=== PATIENT | female | born 1965 | race Caucasian/White ===

== ENCOUNTER 2018-05-01 10:42 | Observation (INO) | payer OTHER ==
--- OUTSIDE RECORDS SUMMARY | 2018-05-01 10:45 | XMS REPORT | Clinical Summary ---
:1965 Author Organization [facility] Address [address] [place] [address] Care Team Providers Name Role Phone Denis Ivan MD Primary Care Provider Allergies Active Allergy Reactions Severity Noted Date Comments Codeine 08/26/2015 Medications Medication Sig Dispensed Refills Start End Status Date Date HYDROcodone-acetaminoph Take 1 tablet 0 10/09/19 Active en (NORCO 10-325) by mouth 2 16 10-325 mg per tablet (two) times a day. diclofenac (VOLTAREN) 1 APPLY TO 0 10/08/19 Active % gel AFFECTED 17 AREA(S) 4 TIMES A DAY FOR 25 DAYS gabapentin (NEURONTIN) 1 capsule 90 capsule 3 11/06/19 Active 300 mg nightly prn. 17 capsuleIndications: Generalized OA estradiol (ESTRACE) 1 Take 1 tablet 0 Active MG tablet every day by oral route. medroxyPROGESTERone Take 5 mg by 6 07/12/19 Active (PROVERA) 5 MG tablet mouth daily. 18 lidocaine (LIDODERM) 5 Place 1 patch 0 Active % on the skin as needed for mild pain. Remove & Discard patch within 12 hours or as directed by levothyroxine Take 137 mcg by 0 Active (SYNTHROID, LEVOXYL) mouth every 137 mcg tablet morning. meloxicam (MOBIC) 15 mg Take 1 tablet 90 tablet 3 01/05/20 Active tabletIndications: (15 mg total) 18 Generalized OA by mouth once daily. CHERATUSSIN AC 10-100 TAKE 10 0 10/29/20 Discontinued mg/5 mL liquid MILLILITERS BY 16 018 MOUTH EVERY 12 HOURS NEEDED FOR COUGH levothyroxine Take 150 mcg by 0 Discontinued (SYNTHROID, LEVOTHROID) mouth every 018 150 MCG tablet morning. desvenlafaxine Take 50 mg by 0 Discontinued (PRISTIQ) 50 MG 24 hr mouth daily. 018 tablet meloxicam (MOBIC) 15 mg Take 1 tablet 90 tablet 3 11/06/19 Discontinued tabletIndications: (15 mg total) 17 018 Generalized OA by mouth once daily. Active Problems Problem Noted Date Osteoarthritis cervical spine 11/05/2015 Spondylosis of lumbar region without myelopathy or radiculopathy 11/05/2015 Last Assessment & Plan: I believe that the majority of Mrs. Del Cid's achiness comes from degenerative disease. She certainly has it present in both the cervical and lumbar spine regions as well as bilaterally in the hands and wrist. The meloxicam is helping and I think we should simply continue it, being certain that there is no evidence that the medication is causing organ damage or toxicity. Raised antibody titer 11/05/2015 Last Assessment & Plan: Although she has had a fairly consistent albeit low positive rheumatoid factor I do not see any evidence of active disease. There is no synovial thickening, precious articular swelling or marked reduction in range of motion (at least that we couldn't better attribute to her widespread degenerative arthritis). Rotator cuff impingement syndrome of right shoulder 11/05/2015 Encounter for long-term (current) use of non-steroidal anti-inflammatories 08/2015 Acquired hypothyroidism 11/05/2015 Last Assessment & Plan: We will continue to check these levels periodically to be certain that her supplements are sufficient. Vitamin D deficiency 11/05/2015 Last Assessment & Plan: We will continue to check these levels periodically to be certain that her [id number] supplements are sufficient. Encounters Date Type Specialty Care Team Description 01/04/2018 Orders Only Rheumatology Katty Martinez MA Generalized OA 07/26/2017 Telephone Rheumatology Katty Martinez MA 07/20/2017 Hospital Encounter Radiology Ok Rand Generalized OA MD 07/20/2017 Hospital Encounter Radiology Ok Rand Generalized OA MD 07/20/2017 Hospital Encounter Radiology Ok Rand Generalized OA MD 07/20/2017 Office Visit Rheumatology Ok Rand Generalized OA ( Primary Dx); MD Encounter for long-term (current) use of non-steroidal anti- inflammatories; BMI 35.0-35.9,adult 05/19/2017 Telephone Rheumatology Katty Martinez MA 05/18/2017 Orders Only Rheumatology Katty Martinez MA Vitamin D deficiency (Primary Dx); Spondylosis of lumbar region without myelopathy or radiculopathy; Raised antibody titer; Acquired hypothyroidism; Encounter for long-term (current) use of non-steroidal anti- inflammatories after 04/30/2017 Family History Medical History Relation Name Comments No Known Problems Brother Alcohol abuse Father No Known Problems Mother Alcohol abuse Sister No Known Problems Sister HALF SISTER; SAME DAD Relation Name Status Comments Brother Alive Father Alive Mother Alive Sister Alive Sister Alive Social History Tobacco Use Types Packs/Day Years Used Date Never Smoker Smokeless Tobacco: Never Used Alcohol Use Drinks/Week oz/Week Comments No Sex Assigned at Date Recorded Not on file Job Start Date Occupation Industry Not on file Not on file Not on file Travel History Travel Start Travel End No recent travel history available. Last Filed Vital Signs Vital Sign Reading Time Taken Blood Pressure 124/71 07/20/2017 8:35 AM CDT Pulse 63 07/20/2017 8:35 AM CDT Temperature 36.7 C (98 F) 07/20/2017 8:35 AM CDT Respiratory Rate 14 07/20/2017 8:35 AM CDT Oxygen Saturation 100% 07/20/2017 8:35 AM CDT Inhaled Oxygen Concentration - - Weight 98.9 kg (218 lb) 07/20/2017 8:35 AM CDT Height 167.6 cm (5' 6") 07/20/2017 8:35 AM CDT Body Mass Index 35.19 07/20/2017 8:35 AM CDT Plan of Treatment Date Type Specialty Care Team Description 07/21/2018 Office Visit Rheumatology Ok Rand MD [address] [facility] [address] [place] [id number] Health Maintenance Due Date Last Done Comments CERVICAL CANCER SCREENING 06/25/1984 BREAST CANCER SCREENING 06/25/2013 COLON CANCER SCREENING 06/25/2013 SHINGLES VACCINES (#1) 06/25/2013 INFLUENZA VACCINE 09/28/2017 Procedures Procedure Name Priority Date/Time Associated Diagnosis Comments XR WRIST 3VW Routine 07/20/2017 11:20 Generalized OA Results for this BILATERAL AM CDT procedure are in the results section. XR HANDS 3 VW Routine 07/20/2017 11:20 Generalized OA Results for this BILATERAL AM CDT procedure are in the results section. XR HIPS BILATERAL AP Routine 07/20/2017 11:08 Generalized OA Results for this LATERAL W AP PELVIS AM CDT procedure are in the results section. VITAMIN D 25 HYDROXY Routine 05/18/2017 3:38 Vitamin D deficiency Results for this LEVEL PM CDT procedure are in the results section. T4, FREE Routine 05/18/2017 3:38 Acquired Results for this PM CDT hypothyroidism procedure are in the results section. THYROID STIMULATING Routine 05/18/2017 3:38 Acquired Results for this HORMONE PM CDT hypothyroidism procedure are in the results section. URINALYSIS, AUTOMATED Routine 05/18/2017 3:38 Encounter for Results for this WITH MICROSCOPY PM CDT long-term (current) procedure are in use of non-steroidal the results anti-inflammatories section. C-REACTIVE PROTEIN Routine 05/18/2017 3:38 Spondylosis of lumbar Results for this PM CDT region without procedure are in myelopathy or the results radiculopathy section. Raised antibody titer SEDIMENTATION RATE Routine 05/18/2017 3:38 Spondylosis of lumbar Results for this PM CDT region without procedure are in myelopathy or the results radiculopathy section. Raised antibody titer COMPREHENSIVE Routine 05/18/2017 3:38 Encounter for Results for this METABOLIC PANEL PM CDT long-term (current) procedure are in use of non-steroidal the results anti-inflammatories section. CBC WITH PLATELET AND Routine 05/18/2017 3:38 Encounter for Results for this DIFFERENTIAL PM CDT long-term (current) procedure are in use of non-steroidal the results anti-inflammatories section. after 04/30/2017 Results XR Wrist 3Vw Bilateral (07/20/2017 11:20 AM CDT) Narrative Performed At EXAMINATION:XR WRIST 3VW BILATERAL HM [facility] CLINICAL HISTORY:M15.9 Polyosteoarthritisunspecified, RA COMPARISON:None available at this time. IMPRESSION: 1. No fracture, malalignment, or osseous destructive lesion in either wrist. 2. Joint spaces are maintained bilaterally. No significant degenerative changes. 3. Soft tissues are unremarkable. [facility]-[id number] Procedure Note Hm Interface, Radiology Results Incoming - 07/20/2017 12:06 PM CDT EXAMINATION: XR WRIST 3VW BILATERAL CLINICAL HISTORY: M15.9 Polyosteoarthritis unspecified, RA COMPARISON: None available at this time. IMPRESSION: 1. No fracture, malalignment, or osseous destructive lesion in either wrist. 2. Joint spaces are maintained bilaterally. No significant degenerative changes. 3. Soft tissues are unremarkable. [facility]-[id number] Performing Organization Address [facility] Phone Number [facility] [address] [place] [address] XR Hands 3 Vw Bilateral (07/20/2017 11:20 AM CDT) Narrative Performed At EXAMINATION:XR HANDS 3 VW BILATERAL [facility] CLINICAL HISTORY:M15.9 Polyosteoarthritisunspecified, RA COMPARISON:None available at this time. IMPRESSION: 1. No fracture, malalignment, or osseous destructive lesion in either hand. 2. Joint spaces are maintained bilaterally. No significant degenerative changes. 3. Soft tissues are unremarkable. [facility]-[id number] Procedure Note Interface, Radiology Results 07/20/2017 12:05 PM CDT EXAMINATION: XR HANDS 3 VW BILATERAL CLINICAL HISTORY: M15.9 Polyosteoarthritis unspecified, RA COMPARISON: None available at this time. IMPRESSION: 1. No fracture, malalignment, or osseous destructive lesion in either hand. 2. Joint spaces are maintained bilaterally. No significant degenerative changes. 3. Soft tissues are unremarkable. [facility]-[id number] Performing Organization Address [facility] Phone Number [facility] [address] [place] [address] XR Hips Bilateral Ap Lateral W Ap Pelvis (07/20/2017 11:08 AM CDT) Narrative Performed At EXAMINATION:XR HIPS BILATERAL AP LATERAL W AP PELVIS [facility] CLINICAL HISTORY:M15.9 Polyosteoarthritisunspecified, RA COMPARISON:None available at this time. IMPRESSION: There is no evidence of fracture or dislocation in either hip. Minimal joint space narrowing of the left hip with small subchondral cyst present. Minimal periarticular osteophyte formation. No suspicious focal blastic or lytic lesions are present [facility]-[id number] Procedure Note Interface, Radiology Results 07/20/2017 12:05 PM CDT EXAMINATION: XR HIPS BILATERAL AP LATERAL W AP PELVIS CLINICAL HISTORY: M15.9 Polyosteoarthritis unspecified, RA COMPARISON: None available at this time. IMPRESSION: There is no evidence of fracture or dislocation in either hip. Minimal joint space narrowing of the left hip with small subchondral cyst present. Minimal periarticular osteophyte formation. No suspicious focal blastic or lytic lesions are present [id number] Performing Organization Address City/[facility]/Zipcode Phone Number JOLENE [address] [place] [address] Vitamin D 25 hydroxy level (05/18/2017 3:38 PM CDT) Vitamin D, 25-hydroxy 39 30 - 100 ng/mL [facility] Comment: [facility] Vitamin D Status 25-OH Vitamin D: Deficiency:<20 ng/mL Insufficiency: 20 - 29 ng/mL Optimal: > or=30 ng/mL For 25-OH Vitamin D testing on patients on D2-supplementation and patients for whom quantitation of D2 and D3 fractions is required, the QuestAssureD(TM) 25-OH VIT D, (D2,D3), LC/MS/MS is recommended: order code 72764 (patients >2yrs). For more information on this test, go to: http://education.[employer]/faq/QOG609 (This link is being provided for informational/educational purposes only.) Specimen Blood Narrative Performed At FASTING:NO [facility] FASTING: NO Resulting Agency Comment Performing Organization Information: Site ID: [id number] Name: [facility] Address: [address] [place] [phone] Director: Daniella Rhoades MD Performing Organization Address [facility] Phone Number [facility] [address] [place], [place] [id number] Urinalysis, automated with microscopy (05/18/2017 3:38 PM CDT) Color, UA YELLOW YELLOW [facility] Appearance CLEAR CLEAR [facility] [place] Specific gravity, urine 1.029 1.001 - 1.035 [facility] pH, urine 7.0 5.0 - 8.0 [facility] [place] Glucose, urine NEGATIVE NEGATIVE [facility] Bilirubin, UA NEGATIVE NEGATIVE [facility] [place] Ketones, UA NEGATIVE NEGATIVE [facility] [place] Occult blood, urine NEGATIVE NEGATIVE [facility] [place] Protein, UA TRACE (A) NEGATIVE [facility] [place] Nitrite, UA NEGATIVE NEGATIVE [facility] [place] Leukocyte esterase, UA NEGATIVE NEGATIVE [facility] [place] WBC, UA NONE SEEN < OR=5 /HPF [facility] [place] RBC, UA NONE SEEN < OR=2 /HPF [facility] [place] Squamous epithelial cells, UA 10-20 (A) < OR=5 /HPF [facility] [place] Bacteria, UA NONE SEEN NONE SEEN /HPF [facility] [place] Hyaline casts, UA NONE SEEN NONE SEEN /LPF [facility] Specimen Urine Narrative Performed At FASTING:NO [facility] FASTING: NO Resulting Agency Comment Performing Organization Information: Site ID: A Name: [facility] Address: [address] [place], [place] [id number] Director: Daniella Rhoades MD Performing Organization Address [facility] Phone [place] [address] Sedimentation rate (05/18/2017 3:38 PM CDT) Sedimentation rate 17 < OR=30 mm/h [facility] Specimen Blood Narrative Performed At FASTING:NO [facility] FASTING: NO Resulting Agency Comment Performing Organization Information: Site ID: [id number] Name: [facility] Address: [address] [place] [address] Director: Daniella Rhoades MD Performing Organization Address [facility] Phone [place] [address] CBC with platelet and differential (05/18/2017 3:38 PM CDT) WBC 5.7 3.8 - 10.8 Thousand/uL [facility] RBC 4.21 3.80 - 5.10 Million/uL [facility] HGB 12.0 11.7 - 15.5 g/dL [facility] HCT 35.7 35.0 - 45.0 % [facility] MCV 84.8 80.0 - 100.0 fL [facility] MCH 28.5 27.0 - 33.0 pg [facility] MCHC 33.6 32.0 - 36.0 g/dL [facility] RDW 13.5 11.0 - 15.0 % [facility] Platelet count 219 140 - 400 Thousand/uL [facility] MPV 12.0 7.5 - 12.5 fL [facility] Neutrophils, absolute 3,688 1,500 - 7,800 cells/uL [facility] Lymphocytes, absolute 1,562 850 - 3,900 cells/uL [facility] Monocytes, absolute 331 200 - 950 cells/uL [facility] [place] Eosinophils, absolute 80 15 - 500 cells/uL [facility] [place] Basophils, absolute 40 0 - 200 cells/uL [facility] [place] Neutrophils 64.7 % [facility] [place] Lymphocytes 27.4 % [facility] Monocytes 5.8 % [facility] Eosinophils 1.4 % [facility] [place] Basophils + RC 0.7 % [facility] Specimen Blood Narrative Performed At FASTING:NO [facility] FASTING: NO Resulting Agency Comment Performing Organization Information: Site ID: [id number] Name: [facility] Address: [address] [place] [phone] Director: Daniella Rhoades MD Performing Organization Address [facility] [place] [address] C-reactive protein (05/18/2017 3:38 PM CDT) CRP 3.0 <8.0 mg/L [facility] Specimen Blood Narrative Performed At FASTING:NO [facility] FASTING: NO Resulting Agency Comment Performing Organization Information: Site ID: [facility] Name: [facility] Address: [address] [place] [phone] Director: Daniella Rhoades MD Performing Organization Address [facility] [place] [address] Thyroid stimulating hormone (05/18/2017 3:38 PM CDT) TSH 0.02 (L) mIU/L [facility] Comment: Reference Range > or=20 Years0.40-4.50 Ranges First trimester0.26-2.66 Second trimester 0.55-2.73 Third trimester0.43-2.91 Specimen Blood Narrative Performed At FASTING:NO [facility] FASTING: NO Resulting Agency Comment Performing Organization Information: Site ID: A Name: [facility] Address: [address] [place] [phone] Director: Daniella Rhoades MD Performing Organization Address [facility] Phone Number [facility] [address] [address] T4, free (05/18/2017 3:38 PM CDT) T4, free 1.8 0.8 - 1.8 ng/dL [facility] [place] Specimen Blood Narrative Performed At FASTING:NO [facility] FASTING: NO Resulting Agency Comment Performing Organization Information: Site ID: [id number] Name: [facility] Address: [address] [place] [phone] Director: Daniella Rhoades MD Performing Organization Address City/State/Zipcode Phone Number [facility] [address] [place] [phone] Comprehensive metabolic panel (05/18/2017 3:38 PM CDT) Glucose 92 65 - 99 mg/dL [facility] Comment: [place] Fasting reference interval BUN, whole blood 15 7 - 25 mg/dL [facility] Creatinine 0.77 0.50 - 1.05 [facility] Comment: mg/dL [facility] For patients >49 years of age, the reference limit for Creatinine is approximately 13% higher for people identified as -Citizen Of [place]. EGFR Non-Afr. Citizen Of [place] 88 > OR=60 [facility] mL/min/1.73m2 [place] EGFR 102 > OR=60 [facility] mL/min/1.73m2 [place] BUN/creatinine ratio NOT APPLICABLE 6 - 22 (calc) [facility] [place] Sodium 142 135 - 146 mmol/L [facility] [place] Potassium 4.3 3.5 - 5.3 mmol/L [facility] [place] Chloride 105 98 - 110 mmol/L [facility] [place] CO2 30 20 - 31 mmol/L [facility] [place] Calcium 9.5 8.6 - 10.4 mg/dL [facility] [place] Protein 7.0 6.1 - 8.1 g/dL [facility] [place] Albumin, S 4.3 3.6 - 5.1 g/dL [facility] [place] Globulin, total 2.7 1.9 - 3.7 g/dL [facility] (calc) [place] Albumin/globulin ratio 1.6 1.0 - 2.5 (calc) [facility] [place] Total bilirubin 0.2 0.2 - 1.2 mg/dL [facility] [place] Alkaline phosphatase 93 33 - 130 U/L [facility] [place] AST 14 10 - 35 U/L [facility] [place] ALT 26 6 - 29 U/L [facility] [place] Specimen Blood Narrative Performed At FASTING:NO [facility] FASTING: NO Resulting Agency Comment Performing Organization Information: Site ID: [id number] Name: [facility] Address: [address] [place] [address] Director: Daniella Rhoades MD Performing Organization Address City/State/Zipcode Phone Number JORDEN [facility] [place] [address] [place] [address] after 04/30/2017 Insurance Payer Benefit Plan / Group Subscriber ID Type Phone Address [employer]IG[employer] CIGNA HMO/POS xxxxxxxxxxx HMO ([place] [address] Advance Directives Patient has advance care planning documents on file. For more information, please contact:Grant Frey[address] [place] [address]
[2018-05-01 12:29] LABS: Absolute Lymphocytes (CBC) 1.4 K/uL (0.7-4.9); Absolute Monocytes 0.2 K/uL (0.1-1.3); Absolute Neutrophil 4.2 K/uL (1.8-8.0); Basophils % 0.7 % (0-1.3); Eosinophils % 0.4 % (0-4.4); Hematocrit 41.9 % (36.0-45.0); Lymphocytes % 23.4 % (15.3-44.8); MPV 9.6 fL (7.6-11.3); Monocytes % 3.7 % (3.3-12.3); RBC Red Blood Cell Count 4.55 M/uL (3.86-4.86)
--- NOTE | 2018-05-01 12:30 | RAD REPORT ---
EXAM DESCRIPTION: Stacey Single View05/01/2018 12:21 pm CLINICAL HISTORY: Chest pain COMPARISON: 2014 FINDINGS: The lungs appear clear of acute infiltrate. The heart is normal size IMPRESSION: No acute abnormalities displayed
[2018-05-01 12:46] LABS: Protime INR 1.08
[2018-05-01 12:49] LABS: ALT/SGPT 26 U/L (12-78); AST/SGOT 10 U/L (15-37); Albumin 4.1 g/dL (3.4-5.0); Alkaline Phosphatase 86 U/L (45-117); BUN Blood Urea Nitrogen 18 mg/dL (7-18); Bicarbonate 29 mmol/L (21-32); Bilirubin Direct 0.1 mg/dL (0-0.2); Bilirubin Total 0.3 mg/dL (0.2-1.0); Glucose Level 92 mg/dL (74-106); Magnesium 2.2 mg/dL (1.8-2.4); NT PRO-BNP 49 pg/mL (<125); Potassium 4.1 mmol/L (3.5-5.1); Protein, Total 7.8 g/dL (6.4-8.2); Sodium Level 140 mmol/L (136-145); Troponin (Emerg Dept Use Only) < 0.02 ng/mL (0.0-0.045)
--- NOTE | 2018-05-01 13:27 | EDPHYS ---
Physician Documentation [facility] Name: Blanca Del Cid Age: 52 yrs Sex: Female : 1965 Arrival Date: 05/01/2018 Time: 10:45 Bed 19 Private MD: ED Physician Quan Jarrell HPI: 05/01 16:45 This 52 yrs old Female presents to ER via Ambulatory with complaints of Arm gs Pain, Chest Pain, Nausea. 16:45 The patient or guardian reports chest pain that is located primarily in the anterior gs chest wall. Onset: 3 day(s) ago. The pain radiates to the left shoulder, left jaw. Associated signs and symptoms: Pertinent positives: nausea, shortness of breath. The chest pain is described as a heaviness. Duration: The patient or guardian reports multiple episodes, that are intermittent, that wax and wane, with no pattern, the episodes last approximately 20 minute(s). Modifying factors: The symptoms are alleviated by nothing. the symptoms are aggravated by nothing. Severity of pain: At its worst the pain was moderate in the emergency department the pain has improved markedly. The patient has experienced similar episodes in the past, a few times. The patient has not recently seen a physician. 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 sling; bunionectomy right; - Immunization history:: Flu vaccine is up to date. - Social history:: Smoking status: Patient/guardian denies using tobacco. - Ebola Screening: : No symptoms or risks identified at this time. ROS: 16:45 All other systems are negative. gs Exam: 16:45 Head/Face: Normocephalic, atraumatic. Eyes: Pupils equal round and reactive to light, gs extra-ocular motions intact. Lids and lashes normal. Conjunctiva and sclera are non-icteric and not injected. Cornea within normal limits. Periorbital areas with no swelling, redness, or edema. ENT: Nares patent. No nasal discharge, no septal abnormalities noted. Tympanic membranes are normal and external auditory canals are clear. Oropharynx with no redness, swelling, or masses, exudates, or evidence of obstruction, uvula midline. Mucous membranes moist. Neck: Trachea midline, no thyromegaly or masses palpated, and no cervical lymphadenopathy. Supple, full range of motion without nuchal rigidity, or vertebral point tenderness. No Meningismus. Chest/axilla: Normal chest wall appearance and motion. Nontender with no deformity. No lesions are appreciated. Cardiovascular: Regular rate and rhythm with a normal S1 and S2. No gallops, murmurs, or rubs. Normal PMI, no JVD. No pulse deficits. Respiratory: Lungs have equal breath sounds bilaterally, clear to auscultation and percussion. No rales, rhonchi or wheezes noted. No increased work of breathing, no retractions or nasal flaring. Abdomen/GI: Soft, non-tender, with normal bowel sounds. No distension or tympany. No guarding or rebound. No evidence of tenderness throughout. Back: No spinal tenderness. No costovertebral tenderness. Full range of motion. Skin: Warm, dry with normal turgor. Normal color with no rashes, no lesions, and no evidence of cellulitis. MS/ Extremity: Pulses equal, no cyanosis. Neurovascular intact. Full, normal range of motion. Neuro: Awake and alert, GCS 15, oriented to person, place, time, and situation. Cranial nerves II-XII grossly intact. Motor strength 5/5 in all extremities. Sensory grossly intact. Cerebellar exam normal. Normal gait. 16:45 Constitutional: The patient appears alert, awake. 16:45 ECG was reviewed by the Attending Physician. Vital Signs: 11:00 BP 166 / 78; Pulse 69; Resp 16 S; Temp 97.3(TE); Pulse Ox 100% on R/A; Weight 93.44 kg aa5 (R); Height 5 ft. 6 in. (167.64 cm) (R); Pain 9/10; 12:37 BP 137 / 82; Pulse 66; Resp 18; Pulse Ox 99% on R/A; Pain 6/10; ph 13:24 BP 137 / 90; Pulse 72; Resp 17; Pulse Ox 99% on R/A; dh3 14:06 BP 141 / 84; Pulse 66; Resp 18; Temp 97.4; Pulse Ox 100% on R/A; ph 11:00 Body Mass Index 33.25 (93.44 kg, 167.64 cm) aa5 MDM: 11:39 Patient medically screened. gs 16:45 Differential diagnosis: acute myocardial infarction, coronary artery disease chest wall gs pain, unstable angina. Data reviewed: vital signs, nurses notes. Counseling: I had a detailed discussion with the patient and/or guardian regarding: the historical points, exam findings, and any diagnostic results supporting the discharge/admit diagnosis, the need for further work-up and treatment in the hospital. Response to treatment: the patient's symptoms have resolved after treatment, the patient's pain is gone. 05/01 11:42 Order name: Basic Metabolic Panel; Complete Time: 13:20 05/01 11:42 Order name: CBC with Diff; Complete Time: 13: 05/01 11:42 Order name: LFT's; Complete Time: 13: 05/01 11:42 Order name: Magnesium; Complete Time: 13:20 05/01 11:42 Order name: NT PRO-BNP; Complete Time: 13:20 05/01 11:42 Order name: PT-INR; Complete Time: 13:20 05/01 11:42 Order name: Troponin (emerg Dept Use Only); Complete Time: 13:20 05/01 11:42 Order name: XRAY Chest (1 view); Complete Time: 13:20 05/01 11:42 Order name: EKG; Complete Time: 11:42 05/01 11:42 Order name: Cardiac monitoring; Complete Time: 14:08 05/01 11:42 Order name: EKG - Nurse/Tech; Complete Time: 14:08 05/01 11:42 Order name: IV Saline Lock; Complete Time: 14:20 05/01 11:42 Order name: Labs collected and sent; Complete Time: 14: 05/01 11:42 Order name: O2 Per Protocol; Complete Time: 14: 05/01 11:42 Order name: O2 Sat Monitoring; Complete Time: 14:21 EC:45 Rate is 65 beats/min. Rhythm is regular. MT interval is normal. Q waves are Old. T gs waves are Flattened. Clinical impression: NSR w/ Non-specific ST/T Changes. Interpreted by me. Administered Medications: No medications were administered Disposition: 05/01/18 13:27 Hospitalization ordered by Ross Campos for Observation. Preliminary diagnosis is Precordial pain. - Bed requested for Telemetry/MedSurg (observation). - Status is Observation. ph - Condition is Stable. - Problem is new. - Symptoms have improved. UTI on Admission? No Signatures: Dispatcher [employer] EDVioletta Willson RN RN dw Calderon, Audri, RN RN aa Era Figueroa RN RN ph JarrellQuan MD MD Corrections: (The following items were deleted from the chart) 13:59 13:27 Hospitalization Ordered by Ross Camops DO for Observation. Preliminary diagnosis is Precordial pain. Bed requested for Telemetry/MedSurg (observation). Status is Observation. Condition is Stable. Problem is new. Symptoms have improved. UTI on Admission? No. gs 14:58 13:59 05/01/2018 13:27 Hospitalization Ordered by Ross Campos DO for Observation. ph Preliminary diagnosis is Precordial pain. Bed requested for Telemetry/MedSurg (observation). Status is Observation. Condition is Stable. Problem is new. Symptoms have improved. UTI on Admission? No. dw
--- NOTE | 2018-05-01 13:27 | ER ---
Nurse's Notes [facility] Name: Blanca Del Cid Age: 52 yrs Sex: Female : 1965 Arrival Date: 05/01/2018 Time: 10:45 Bed 19 Private MD: Diagnosis: Precordial pain Presentation: 05/01 10:54 Presenting complaint: Patient states: left arm pain that began Tuesday. Pt reports chest aa5 pain that began Tuesday. Pt also reports palpitations, SOB, nausea, and left ear/left jaw pain. Transition of care: patient was not received from another setting of care. Onset of symptoms was April 2018. Risk Assessment: Do you want to hurt yourself or someone else? Patient reports no desire to harm self or others. Initial Sepsis Screen: Does the patient meet any 2 criteria? No. Patient's initial sepsis screen is negative. Does the patient have a suspected source of infection? No. Patient's initial sepsis screen is negative. Care prior to arrival: None. 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/A - Uterine ablation aa5 Historical: - Allergies: 10:56 Sulfa (Sulfonamide Antibiotics); aa5 10:56 Morphine; aa5 - Home Meds: 11:00 Synthroid 137 mcg Oral tab once daily [Active]; hydrocodone-acetaminophen 10-325 mg aa5 Oral tab [Active]; meloxicam oral oral [Active]; estradiol 1 mg Oral tab [Active]; medroxyprogesterone 5 mg Oral tab [Active]; Cymbalta 60 mg oral cpDR [Active]; - PMHx: 11:00 Depression; hypothyroidism; Prolapsed bladder; RA; Osteoarthritis; aa5 - PSHx: 10:56 Cholecystectomy; ; Right foot surg; ablation endometreosis; phenolisation; aa5 Tonsillectomy; Tubal ligation; colposcopy; T.V.T. sling; bunionectomy right; - Immunization history:: Flu vaccine is up to date. - Social history:: Smoking status: Patient/guardian denies using tobacco. - Ebola Screening: : No symptoms or risks identified at this time. Screenin:38 Abuse screen: Denies threats or abuse. Denies injuries from another. Nutritional ph screening: No deficits noted. Tuberculosis screening: No symptoms or risk factors identified. Fall Risk None identified. Assessment: 11:45 General: Appears in no apparent distress. comfortable, well groomed, Behavior is calm, ph cooperative, appropriate for age, Denies fever, feeling ill. Pain: Complains of pain in chest, head, and epigastric area Pain does not radiate. Pain currently is 6 out of 10 on a pain scale. Pain began 2-3 days ago. Is intermittent. Neuro: Level of Consciousness is awake, alert, obeys commands, Oriented to person, place, time, situation, Reports headache occipital area, Denies blurred vision dizziness. Cardiovascular: Reports chest pain, nausea, palpitations, shortness of breath, Denies vomiting, Capillary refill < 3 seconds in bilateral fingers Patient's skin is warm and dry. Chest pain is located in epigastric area substernal area radiates to left arm(s). Respiratory: Airway is patent Respiratory effort is even, unlabored, Respiratory pattern is regular, symmetrical, Breath sounds are clear bilaterally. GI: Reports epigastric pain, nausea, Patient currently denies diarrhea, vomiting. Derm: Skin is intact, is healthy with good turgor, Skin is pink, warm \T\ dry. Musculoskeletal: Circulation, motion, and sensation intact. Range of motion: intact in all extremities. 12:36 Reassessment: Patient appears in no apparent distress at this time. Patient and/or ph family updated on plan of care and expected duration. Pain level reassessed. Patient is alert, oriented x 3, equal unlabored respirations, skin warm/dry/pink. Pt resting quietly, awaiting lab results. 14:28 Reassessment: Patient appears in no apparent distress at this time. Patient and/or ph family updated on plan of care and expected duration. Pain level reassessed. Patient is alert, oriented x 3, equal unlabored respirations, skin warm/dry/pink. Dr El at bedside to speak w/ pt. 14:39 Reassessment: report called to Ana Natarajan RN. Vital Signs: 11:00 BP 166 / 78; Pulse 69; Resp 16 S; Temp 97.3(TE); Pulse Ox 100% on R/A; Weight 93.44 kg aa5 (R); Height 5 ft. 6 in. (167.64 cm) (R); Pain 9/10; 12:37 BP 137 / 82; Pulse 66; Resp 18; Pulse Ox 99% on R/A; Pain 6/10; ph 13:24 BP 137 / 90; Pulse 72; Resp 17; Pulse Ox 99% on R/A; dh3 14:06 BP 141 / 84; Pulse 66; Resp 18; Temp 97.4; Pulse Ox 100% on R/A; ph 11:00 Body Mass Index 33.25 (93.44 kg, 167.64 cm) aa5 ED Course: 10:45 Patient arrived in ED. mr 10:55 Triage completed. aa5 10:56 Arm band placed on. aa5 11:17 Era Figueroa, RAVINDER is Primary Nurse. ph 11:25 Quan Jarrell MD is Attending Physician. gs 11:25 EKG done, by vascular technician. reviewed by Ariane William MD. at1 12:00 Inserted saline lock: 20 gauge in right antecubital area, using aseptic technique. ph Blood collected. 12:15 X-ray completed. Portable x-ray completed in exam room. Patient tolerated procedure jb2 well. 12:21 XRAY Chest (1 view) In Process Unspecified. EDMS 12:38 Patient has correct armband on for positive identification. Placed in gown. Bed in low ph position. Call light in reach. envelope sealing machine operator on. Pulse ox on. NIBP on. 12:38 Patient maintains SpO2 saturation greater than 95% on room air. ph 13:26 Ross Campos DO is Hospitalizing Provider. gs 14:06 No provider procedures requiring assistance completed. Patient admitted, IV remains in ph place. Administered Medications: No medications were administered Outcome: 13:27 Decision to Hospitalize by Provider. gs 14:57 Admitted to Tele accompanied by becki, family with patient, via wheelchair, room 408, with chart, Report called to Delgado Perez RN 14:57 Condition: stable 14:57 Instructed on the need for admit. 14:58 Patient left the ED. ph Signatures: Dispatcher [employer] EDTN Judy Short Jesse jb2 Janeen Clarke RN RN aa5 Jaycee Cordova, ski lift operator EKG Tat1 Era Figueroa RN RN Yesika Larsennna dh3 Jarrell, Quan, MD MD gs
--- NOTE | 2018-05-01 13:42 | EKG ---
Test Date: 2018-05-01 Test Time: 10:55:42 Showroom Sales Assistant: YAA MEASUREMENT RESULTS: Intervals: Rate: 67 WA: 164 QRSD: 74 QT: 388 QTc: 409 Williamson: P: 70 WA: 164 QRS: 74 T: 46 INTERPRETIVE STATEMENTS: Normal sinus rhythm Low voltage QRS Cannot rule out Anterior infarct, age undetermined Abnormal ECG No previous ECG available for comparison Electronically Signed On 05-01-18 13:37:51 MANUFACTURING LEADER by Solitario El
--- NOTE | 2018-05-01 13:43 | P.HP ---
Certification for Inpatient Patient admitted to: Observation With expected LOS: <2 Midnights Patient will require the following post-hospital care: None Practitioner: I am a practitioner with admitting privileges, knowledge of patient current condition, hospital course, and medical plan of care. Services: Services provided to patient in accordance with Admission requirements found in Title 42 Section 412.3 of the Code of Federal Regulations Patient History Date of Service: 05/01/18 Primary Care Provider: ALEC Yee Reason for admission: Chest pain with palpitation History of Present Illness: 52-year-old female presented to the emergency room with chest pain and palpitation. Patient reports that over the past month she has been having chest pain at rest with palpitations. Chest pain with mainly be to the substernal region. Patient reports chest pain to be intermittent. Associated with some shortness of breath and palpitation. Today she had some jaw pain with pain to the left shoulder. Patient decided to come to the ER for further evaluation. She further reports history of cardiac stress test done in 2015 which was unremarkable. In the ER patient evaluated. Blood pressure slightly elevated at 160/78. EKG showed no significant ST elevation. Troponin unremarkable. Chest x-ray unremarkable. CBC and BMP within normal range. Patient was admitted for further evaluation and treatment. 1 sulfa patient ER, she is without any chest pain. Patient reports history of hypothyroidism, rheumatoid arthritis and history of TIA. She denies any tobacco use. Patient takes pain medication for rheumatoid arthritis. This includes meloxicam, hydrocodone and Cymbalta. Home medications list reviewed: Yes - Past Medical/Surgical History Diabetic: No -: Rheumatoid arthritis -: Osteoarthritis -: Hypothyroidism -: History of TIA -: Ovary removed -: Cholecystectomy -: Psychosocial/ Personal History: Patient is . She has 2 children. 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 - Family History Family History: Reviewed- Non-Contributory - Social History Smoking Status: Never smoker Alcohol use: Yes CD- Drugs: No Caffeine use: Yes Place of Residence: Home Review of Systems General: As per HPI Eyes: Unremarkable ENT: Unremarkable Respiratory: Unremarkable Cardiovascular: Chest Pain, Palpitations, As per HPI Gastrointestinal: Nausea, As per HPI Genitourinary: Unremarkable Musculoskeletal: Unremarkable Integumentary: Unremarkable Neurological: Unremarkable Lymphatics: Unremarkable Physical Examination - Physical Exam General: Alert, In no apparent distress, Oriented x3, Cooperative HEENT: Atraumatic, Normocephalic, PERRLA, Mucous membr. moist/pink Neck: Supple, No Thyromegaly Respiratory: Clear to auscultation bilaterally, Normal air movement Cardiovascular: Normal pulses, Regular rate/rhythm Gastrointestinal: Normal bowel sounds, Soft and benign, Non-distended, No tenderness, No masses, No rebound, No guarding Musculoskeletal: No erythema, No tenderness, No warmth Integumentary: No tenderness/swelling, No erythema, No warmth, No cyanosis Neurological: Normal speech, Normal strength at 5/5 x4 extr, Normal tone, Normal affect Lymphatics: No axilla or inguinal lymphadenopathy - Studies Laboratory Data (last 24 hrs) 05/01/18 12:00: PT 12.7 H, INR 1.08 05/01/18 12:00: WBC 5.9, Hgb 13.8, Hct 41.9, Plt Count 207 05/01/18 12:00: Sodium 140, Potassium 4.1, BUN 18, Creatinine 0.78, Glucose 92, Magnesium 2.2, Total Bilirubin 0.3, AST 10 L, ALT 26, Alkaline Phosphatase 86 Assessment and Plan - Plan Impression: Chest pain with palpitations Elevated blood pressure without hypertension Rheumatoid arthritis Hypothyroidism History of TIA Plan: Chest pain with palpitations: Patient will be admitted for observation. Cardiology consulted. Will monitor telemetry and cardiac enzymes. Will order echocardiogram and cardiac stress test to further evaluate. Await recs from cardiology Elevated blood pressure without hypertension: Will monitor blood pressure closely. Patient may require medication at discharge. Rheumatoid arthritis: Restart home medication of hydrocodone and Cymbalta. Will discontinue meloxicam. Hypothyroidism: Will check TSH. Will need to restart home medication. History of TIA: Will start aspirin 81 mg daily. Will provide DVT prophylaxis. Discharge Plan: Home Plan to discharge in: 24 Hours - Advance Directives Does patient have a Living Will: No Does patient have a Durable POA for Healthcare: No - Code Status/Comfort Care Code Status Assessed: Yes (Patient full code.) Time Spent Managing Pts Care (In Minutes): 55
[2018-05-01] MEDS ORDERED: HYDRALAZINE HCL 20 MG/ML VIAL IV PRN (15:26)
[2018-05-01] MEDS ORDERED: ACETAMINOPHEN 500 MG TAB PO PRN (15:26)
[2018-05-01] MEDS ORDERED: ONDANSETRON 4 MG/2 ML VIAL IV PRN (15:26)
[2018-05-01] MEDS ORDERED: HYDROCODONE/APAP 7.5/325 MG TAB PO PRN (15:26)
[2018-05-01] MEDS ORDERED: NITROGLYCERIN 0.4 MG/TAB SL PRN (15:26)
[2018-05-01] MEDS ORDERED: MORPHINE 2 MG/ML SYR IV PRN (15:26)
[2018-05-01 16:21] LABS: CKMB Creatine Kinase MB 2.1 ng/mL (0.3-3.6); Creatine Phosphokinase 70 U/L (26-192); Troponin I < 0.02 ng/mL (0.0-0.045)
--- NOTE | 2018-05-01 18:08 | CON ---
Chief Complaint: Chest pain. History Of Present Illness: Mrs. Del Cid is 52. For about a week, she has been having chest pain inte rmittently. It occurs any time of day, any body position, any level of activity. If anything, it is more noticeable when she gets ready to go to bed. It lasts about 10 minutes and goes away. It is j ust a vague discomfort in the chest. She has never had myocardial infarction or stroke. She has a h istory of thyroid disease and a history of rheumatoid arthritis. She is not on any special medicatio ns for rheumatoid arthritis. She says it is a very recent diagnosis and the doctors are still doing evaluations. She does not have any joint deformities from rheumatoid arthritis. Allergies: NO ALLERGIES ARE KNOWN. Social History: She uses no tobacco. No recreational drugs. Rare alcohol. Physical Examination: General: She is alert, oriented, pleasant, appears to be her stated age. She is not in any distress . Neck: There is no carotid bruit. Lungs: Clear. Heart: Within normal limits. Abdomen: Soft. Extremities: No edema. Distal pulses palpable. Vital signs: Her blood pressure is 166/78, pulse 69, five feet and 6 inches, body mass index 33. Medications: She takes levothyroxine, hydrocodone for pain, meloxicam intermittently for pain, medro xyprogesterone, and Cymbalta. Diagnostic Studies: Her electrocardiogram shows a questionable anterior infarct. Our plan is to do an echocardiogram and pharmacologic nuclear stress test. If those are normal, we w ill stop the work out where it is. I suspect this is not chest pain from coronary heart disease. JOSH Voice ID: [id number] Report ID: [id number]
[2018-05-01] MEDS ORDERED: DULOXETINE 30 MG CAP PO SCH (21:00)
[2018-05-01] MEDS ORDERED: ATORVASTATIN 10 MG TAB PO SCH (21:00)
[2018-05-01 21:58] LABS: Urine Appearance CLEAR; Urine Bilirubin NEGATIVE (NEG); Urine Blood NEGATIVE (NEG); Urine Color YELLOW; Urine Glucose NEGATIVE (NEG); Urine Protein NEGATIVE (NEG); Urine Specific Gravity >=1.030 (1.005-1.030); Urine Urobilinogen 0.2 mg/dL (0.2-1.0)
[2018-05-01 21:59] LABS: Urine Microscopic Reflex NO UMIC
[2018-05-02 00:09] LABS: CKMB Creatine Kinase MB 1.6 ng/mL (0.3-3.6); Creatine Phosphokinase 63 U/L (26-192); Troponin I < 0.02 ng/mL (0.0-0.045)
[2018-05-02 04:55] LABS: Absolute Lymphocytes (CBC) 2.3 K/uL (0.7-4.9); Absolute Monocytes 0.4 K/uL (0.1-1.3); Absolute Neutrophil 3.9 K/uL (1.8-8.0); Basophils % 0.8 % (0-1.3); Hematocrit 41.1 % (36.0-45.0); Lymphocytes % 34.3 % (15.3-44.8); MPV 9.5 fL (7.6-11.3); Monocytes % 5.6 % (3.3-12.3); RBC Red Blood Cell Count 4.48 M/uL (3.86-4.86)
[2018-05-02 05:09] LABS: Magnesium 2.2 mg/dL (1.8-2.4); Potassium 3.8 mmol/L (3.5-5.1)
[2018-05-02] MEDS ORDERED: LEVOTHYROXINE SOD 0.112 MG TAB PO SCH (06:30)
[2018-05-02] MEDS ORDERED: LEVOTHYROXINE SOD 0.025 MG TAB PO SCH (06:30)
[2018-05-02] MEDS ORDERED: REGADENOSON 0.4 MG/5 ML SYR IV ONE (08:17)
[2018-05-02] MEDS ORDERED: ENOXAPARIN 40 MG/0.4 ML SQ SCH (09:00)
[2018-05-02] MEDS ORDERED: ASPIRIN EC 81 MG TAB PO SCH (09:00)
[2018-05-02] MEDS ORDERED: POTASSIUM CL SA 10 MEQ TAB PO ONE (09:00)
--- NOTE | 2018-05-02 12:55 | PN ---
Subjective: Ms. Del Cid was admitted by Dr. Campos on 05/01/2018. She was seen by Dr. El on 05/01. Reason for consultation was chest pain. She has a history of depression, arthritis, and hypo thyroidism. Telemetry showed no significant changes overnight. Vital signs were stable today. Echo cardiogram which was done today was within normal limit. Lexiscan is still pending. We will see giacomo t that shows prior to making final decisions. NOA/FARZAD Voice ID: [id number] Report ID: [id number]
--- NOTE | 2018-05-02 14:08 | RAD REPORT ---
EXAM DESCRIPTION: NM - Rest Stress Cardiac Imaging - 05/02/2018 1:34 pm CLINICAL HISTORY: Chest pain. COMPARISON: None. TECHNIQUE: The patient was administered approximately 10mCi of Tc 99m Sestamibi prior to resting SPE CT imaging of the heart. The patient was then administered approximately 30 mCi of Tc 99m Sestamibi f ollowing exercise or pharmacologic stress. Multiplanar SPECT images were reviewed. FINDINGS: There is uniformity of radiotracer uptake involving the entire left ventricular myocardiu m on rest and stress images. The left ventricular ejection fraction equals 65% IMPRESSION: Negative for a myocardial perfusion defect
--- NOTE | 2018-05-02 14:48 | P.DS ---
Admission Date: 05/01/18 Discharge Date: 05/02/18 Primary Care Provider: ALEC Yee Disposition: ROUTINE DISCHARGE Discharge Condition: GOOD Reason for Admission: Chest pain with palpitation Consultations: Cardiology-Dr. El Procedures: Cardiac stress test: COMPARISON: None. TECHNIQUE: The patient was administered approximately 10mCi of Tc 99m Sestamibi prior to resting SPECT imaging of the heart. The patient was then administered approximately 30 mCi of Tc 99m Sestamibi following exercise or pharmacologic stress. Multiplanar SPECT images were reviewed. FINDINGS: There is uniformity of radiotracer uptake involving the entire left ventricular myocardium on rest and stress images. The left ventricular ejection fraction equals 65% IMPRESSION: Negative for a myocardial perfusion defect Medical problem list: Chest pain with palpitations Elevated blood pressure without hypertension Rheumatoid arthritis Hypothyroidism History of TIA Suspect GERD Brief History of Present Illness: 52-year-old female presented to the emergency room with chest pain and palpitation. Patient reports that over the past month she has been having chest pain at rest with palpitations. Chest pain with mainly be to the substernal region. Patient reports chest pain to be intermittent. Associated with some shortness of breath and palpitation. Today she had some jaw pain with pain to the left shoulder. Patient decided to come to the ER for further evaluation. She further reports history of cardiac stress test done in 2016 which was unremarkable. In the ER patient evaluated. Blood pressure slightly elevated at 160/78. EKG showed no significant ST elevation. Troponin unremarkable. Chest x-ray unremarkable. CBC and BMP within normal range. Patient was admitted for further evaluation and treatment. 1 sulfa patient ER, she is without any chest pain. Patient reports history of hypothyroidism, rheumatoid arthritis and history of TIA. She denies any tobacco use. Patient takes pain medication for rheumatoid arthritis. This includes meloxicam, hydrocodone and Cymbalta. Hospital Course: Patient presented with chest pain and palpitations. Patient was observed. Cardiac enzymes unremarkable. Cardiology evaluated patient. Echocardiogram and cardiac stress test performed. Cardiac stress test shows normal ejection fraction without any evidence of ischemia. Patient may be discharged home. Recommend to continue with aspirin 81 mg daily. Patient may follow up with cardiology in 1-2 weeks. Patient with elevated blood pressure without hypertension. Will recommend to monitor blood pressure daily. If her blood pressure remains above 140/90 consistently patient may require medication. This can be further addressed by her PCP or cardiology as an outpatient. Patient may have underlying GERD. At discharge will recommend to continue with Pepcid 20 mg 1 pill twice daily. Patient may benefit with GI evaluation as an outpatient for possible EGD to further evaluate chest pain. Patient to limit nonsteroidal anti-inflammatories. Patient has rheumatoid arthritis. Patient may continue with hydrocodone, Cymbalta and meloxicam. Patient to limit Meloxicam. Patient with hypothyroidism. Patient will continue with her medication levothyroxine. Patient with history of TIA. Patient will continue with aspirin 81 mg daily. Vital Signs/Physical Exam: Temp Pulse Resp BP Pulse Ox 98.5 F 73 16 140/72 100 05/02/18 12:00 05/02/18 12:00 05/02/18 12:00 05/02/18 12:00 05/02/18 12:00 General: Alert, In no apparent distress, Oriented x3, Cooperative HEENT: Atraumatic Neck: Supple Respiratory: Clear to auscultation bilaterally, Normal air movement Cardiovascular: Normal pulses, Regular rate/rhythm Gastrointestinal: Normal bowel sounds, Soft and benign, Non-distended Musculoskeletal: No erythema, No tenderness, No warmth Integumentary: No erythema, No warmth, No cyanosis Neurological: Normal speech, Normal strength at 5/5 x4 extr, Normal tone, Normal affect Laboratory Data at Discharge: WBC 6.8 K/uL (4.3-10.9) D 05/02/18 04:16 Hgb 13.5 g/dL (12.0-15.0) 05/02/18 04:16 Hct 41.1 % (36.0-45.0) 05/02/18 04:16 Plt Count 185 K/uL (152-406) 05/02/18 04:16 PT 12.7 SECONDS (9.5-12.5) H 05/01/18 12:00 INR 1.08 05/01/18 12:00 Sodium 140 mmol/L (136-145) 05/02/18 04:16 Potassium 3.8 mmol/L (3.5-5.1) 05/02/18 04:16 BUN 20 mg/dL (7-18) H 05/02/18 04:16 Creatinine 0.80 mg/dL (0.55-1.3) 05/02/18 04:16 Glucose 106 mg/dL (74-106) 05/02/18 04:16 Magnesium 2.2 mg/dL (1.8-2.4) 05/02/18 04:16 Total Bilirubin 0.3 mg/dL (0.2-1.0) 05/01/18 12:00 AST 10 U/L (15-37) L 05/01/18 12:00 ALT 26 U/L (12-78) 05/01/18 12:00 Alkaline Phosphatase 86 U/L (45-117) 05/01/18 12:00 Troponin I < 0.02 ng/mL (0.0-0.045) 05/01/18 23:14 Triglycerides 91 mg/dL (<150) 05/02/18 04:16 Cholesterol 175 mg/dL (<200) 05/02/18 04:16 HDL Cholesterol 56 mg/dL (40-60) 05/02/18 04:16 Cholesterol/HDL Ratio 3.13 05/02/18 04:16 Home Medications: Duloxetine HCl [Cymbalta] 60 mg PO DAILY 05/01/18 Estradiol [Estrace] 1 mg PO DAILY 05/01/18 Hydrocodone Bit/Acetaminophen [Hydrocodon-Acetaminoph 7.5-325] 1 each PO BID 06/16 Levothyroxine [Synthroid*] 137 mcg PO [id number] 05/01/18 Medroxyprogesterone Acetate 5 mg PO DAILY 05/01/18 Meloxicam [Mobic] 15 mg PO DAILY 05/01/18 Aspirin [Aspirin EC 81 MG] 81 mg PO DAILY #90 tablet. 05/02/18 Famotidine [Pepcid] 20 mg PO BID #60 tab 05/02/18 New Medications: Aspirin [Aspirin EC 81 MG] 81 mg PO DAILY #90 tablet. Famotidine [Pepcid] 20 mg PO BID #60 tab Patient Discharge Instructions: 1. Patient to follow up with her PCP within 1 week. 2. Patient presented with chest pain and palpitations. Patient was observed. Cardiac enzymes unremarkable. Cardiology evaluated patient. Echocardiogram and cardiac stress test performed. Cardiac stress test shows normal ejection fraction without any evidence of ischemia. Patient may be discharged home. Recommend to continue with aspirin 81 mg daily. Patient may follow up with cardiology in 1-2 weeks. 3. Patient with elevated blood pressure without hypertension. Will recommend to monitor blood pressure daily. If her blood pressure remains above 140/90 consistently patient may require medication. This can be further addressed by her PCP or cardiology as an outpatient. 4. Patient may have underlying GERD. At discharge will recommend to continue with Pepcid 20 mg 1 pill twice daily. Patient may benefit with GI evaluation as an outpatient for possible EGD to further evaluate chest pain. Patient to limit nonsteroidal anti-inflammatories. 5. Patient has rheumatoid arthritis. Patient may continue with hydrocodone, Cymbalta and meloxicam. Patient to limit Meloxicam. 6. Patient with hypothyroidism. Patient will continue with her medication levothyroxine. 7. Patient with history of TIA. Patient will continue with aspirin 81 mg daily. Diet: AHA Activity: Ad lisa Time spent managing pt's care (in minutes): 55
--- NOTE | 2018-05-03 08:39 | ECHO ---
HEIGHT: 5 ft 6 in WEIGHT: 205 lb 0.478 oz DATE OF STUDY: 05/02/[address]: Ross Campos DO 2-DIMENSIONAL: YES M.MODE: YES DOPPLER: YES COLOR FLOW: YES TDS: NO PORTABLE: NO DEFINITY: NO BUBBLE STUDY: NO DIAGNOSIS: CHEST PAIN, PALPITATIONS CARDIAC HISTORY: CATHERIZATION: NO SURGERY: NO PROSTHETIC VALVE: NO PACEMAKER: NO MEASUREMENTS (cm) DIASTOLIC (NORMALS) SYSTOLIC (NORMALS) IVSd 0.9 (0.6-1.2) LA Diam 3.5 (1.9-4.0) LVEF 60% LVIDd 4.5 (3.5-5.7) LVIDs 3.1 (2.0-3.5) %FS 32% LVPWd 0.9 (0.6-1.2) Ao Diam 2.9 (2.0-3.7) 2 DIMENSIONAL ASSESSMENT: RIGHT ATRIUM: NORMAL LEFT ATRIUM: NORMAL RIGHT VENTRICLE: NORMAL LEFT VENTRICLE: NORMAL TRICUSPID VALVE: NORMAL MITRAL VALVE: NORMAL PULMONIC VALVE: NORMAL AORTIC VALVE: NORMAL PERICARDIAL EFFUSION: NONE AORTIC ROOT: NORMAL LEFT VENTRICULAR WALL MOTION: NORMAL. DOPPLER/COLOR FLOW: NORMAL. COMMENTS: NORMAL 2D ECHO WITH DOPPPLER. NO WALL MOTION ABNORMALITY. NO EFFUSION. TECHNOLOGIST: ROHNA BIRD
--- NOTE | 2018-05-03 09:25 | TREADPHA ---
DX: CHEST PAIN Date of Study: 05/02/2018 Ht: 5 6 Wt: 205 lb 0.478 oz Consulting Physician: LUCIA MEDICATIONS: TYLENOL, ASPIRIN, LIPITOR, LOVENOX, HYDRALAZINE, NORCO, SYTHROID, MORPHINE, NITROSTAT, ZOFRAN HISTORY: 52 YEAR OLD FEMALE WITH CHEST PAIN AND LEFT ARM PAIN. HISTORY OF TIA, OSTEOARTHRITIS, RHEUMATOID ARTHRITIS, HYPOTHYROIDISM, NON SMOKER, NON DRINKER. PHYSICIAL EXAMINATION: RESTING B.P.: 135/82 RESTING H.R.: 80 RESTING EKG: NORMAL PROTOCOL: LEXISCAN EXERCISE TIME: 3:30 B.P. AT PEAK STRESS: 134/84 IMPRESSION: LEXISCAN INJECTED, FOLLOWED BY CARDIOLITE PER PROTOCOL. SEE NUCLEAR MEDICINE REPORT. NO SUPRAVENTRICULAR TACHYCARDIA. NO VENTRICULAR TACHYCARDIA. NO PREMATURE ATRIAL COMPLEXES. NO PREMATURE VENTRICULAR COMPLEXES. PATIENT REPORT 1/10 CHEST PAIN DURING PROCEDURE. PATIENT REPORTED NO CHEST PAIN IN RECOVERY.
== END 2018-05-02 16:34 | disposition home or self-care (01) ==
LOC: ER 10:42 → ERHOLD 13:43 → 4TH 14:40
PROVIDERS: ADMIT Family Medicine; ATTEND Family Medicine
DX: R07.9 Chest pain, unspecified (principal); R00.2 Palpitations; R03.0 Elevated blood-pressure reading, without diagnosis of hypertension; M06.9 Rheumatoid arthritis, unspecified; E03.9 Hypothyroidism, unspecified; Z86.73 Personal history of transient ischemic attack (TIA), and cerebral infarction without residual deficits
CPT/HCPCS: 36415; 71045; 78452; 80048; 80061; 80076; 81003; 82550; 82553; 83735; 83880; 84439; 84443; 84484; 85025; 85610; 93005; 93017; 93306; 99285; A9500; G0378; J1650; J2785